=== PATIENT | female | born 1955 | race Asian ===

== ENCOUNTER 2019-07-17 14:27 | Emergency (ER) | payer SELFPAY ==
[2019-07-17 15:23] LABS: ALT (SGPT) 13 U/L (8-55); AST (SGOT) 23 U/L (5-34); Albumin 3.4 g/dL (3.4-4.8); Alkaline Phosphatase 77 U/L (40-110); Anion Gap 13 mmol/L (10-20); BUN (Urea Nitrogen) 34 mg/dL (9.8-20.1); Bilirubin, Total 0.5 mg/dL (0.2-1.2); Calc. Creatinine Clearance 0 mL/min (70-130); Calcium 8.4 mg/dL (7.8-10.44); Carbon Dioxide 17 mmol/L (23-31); Chloride 111 mmol/L (98-107); Estimated GFR-MDRD 30; Globulin 3.7 g/dL (2.4-3.5); Glucose 146 mg/dL (80-115); Lipase 87 U/L (8-78); Potassium 3.9 mmol/L (3.5-5.1); Protein, Total 7.1 g/dL (6.0-8.3); Sodium 137 mmol/L (136-145)
[2019-07-17 15:26] LABS: Hemoglobin 9.3 g/dL (12.0-16.0); Mean Corpuscular HGB CONC 29.4 g/dL (32.0-36.0); Mean Corpuscular Hemoglobin 22.5 pg (27.0-31.0); Mean Corpuscular Volume 76.4 fL (78.0-98.0); Mean Platelet Volume 9.6 fL (7.4-10.4); Platelet Count 113 thou/uL (130-400); RBC Distribution Width 14.8 % (11.5-14.5); Red Blood Cell (RBC) Count 4.14 mill/uL (4.20-5.40); White Blood Cell (WBC) Count 4.9 thou/uL (4.8-10.8)
[2019-07-17 15:29] LABS: Band 2 % (5-11); Eosinophils 2 % (0-10); Hypochromia SLIGHT = 6-15 cells (100X) (0-5/hpf); Lymphocytes 28 % (21-51); MDiff Complete? YES; Microcytosis SLIGHT = 6-15 cells (100X) (0-5/hpf); Monocytes 12 % (0-10); Neutrophil 55 % (42-75); Ovalocytes SLIGHT = 2-5 cells (100X) (0-1/hpf); Platelet Morphology Comment Appears Decreased
--- NOTE | 2019-07-17 16:37 | CT ---
CT ABDOMEN AND PELVIS WITHOUT CONTRAST: 07/17/19 HISTORY: Abdominal pain and diarrhea. FINDINGS: Absence of oral and IV contrast reduces the sensitivity of the exam particularly for evaluation of so lid organs and bowel. Images of the lung bases are clear. No calcified gallstones are seen. There is irregularity of the liver consistent with cirrhosis. The spleen is enlarged measuring 15 cm in AP dim ension and 13 cm in CC dimension. There are varices in the left upper quadrant. No free air or free f luid is seen in the abdomen or pelvis. The small bowel loops are not abnormally dilated. A normal appearing appendix is seen. No calculi is seen in the kidneys, ureters or the urinary bladder. No hydroureteronephrosis is noted on either side . No aneurysmal dilatation of the abdominal aorta is seen. There are degenerative changes in the spin e. There is grade II anterolisthesis of L5 over S1. There are pars articularis defects bilaterally at the L5 level. There are postop changes and metallic hardware in the right iliac bone and acetabulum. There is a fat containing low anterior abdominal wall hernia. IMPRESSION: 1. Cirrhosis of the liver. 2. Splenomegaly. 3. No CT evidence of urinary tract calculi or obstruction. 4. Fat containing lower anterior abdominal wall hernia. 5. Grade II anterolisthesis of L5 over S1 with bilateral pars articularis defects at L5 level. POS: [facility]
== END 2019-07-17 17:25 | disposition home or self-care (01) ==
LOC: SCSER 14:27
DX: K52.9 Noninfective gastroenteritis and colitis, unspecified (principal); D64.9 Anemia, unspecified; K74.60 Unspecified cirrhosis of liver; R16.1 Splenomegaly, not elsewhere classified; K46.9 Unspecified abdominal hernia without obstruction or gangrene; E86.0 Dehydration; E11.9 Type 2 diabetes mellitus without complications; I10 Essential (primary) hypertension
CPT/HCPCS: 74176; 80053; 82274; 83605; 83630; 83690; 85025; 87045; 87046; 87324; 87427; 87449; 96360; 96361